=== PATIENT | male | born 1970 | race Caucasian/White ===

== ENCOUNTER 2019-12-08 05:08 | Inpatient (IN) ==
--- NOTE | 2019-11-28 14:19 | PAT Medication Instructions ---
Medication Instructions Date of Service November 28, 2019 Home Medications Medication Instructions Recorded meloxicam 15 mg tablet 15 mg PO DAILY #30 tab 11/04/19 ASK your surgeon for instructions meloxicam 15 mg tablet 15 mg PO DAILY Other Notes If you have any questions please call us at [phone] or [phone] or [phone] or [phone]
--- NOTE | 2019-11-29 10:46 | Anesthesiology Consultation ---
Date of Service November 29, 2019 Assessment & Plan (1) Encounter for pre-operative examination: Chart Review Chart Review: Acceptable Risk for Surgery (pending pre op labs) and Patient seen in Pre Admission Testing Teaching & Discussion Instructed NPO after midnight before surgery, except medications with 15 cc of water. Medication instructions provided according to the PAT guidelines. History Surgery Operation Date: 12/08/19 07:30 Proposed Procedures p C5-C6 Cervical Disc Arthroplasty - Sid Rush, Height/Weight Height: 5 ft 11 in Weight: 104.326 kg Allergies Allergy/AdvReac Type Severity Reaction Status Date / Time Penicillins Allergy Unknown REACTION Verified 11/29/19 08:40 , PT NOT SURE REACTION Medications Home Medications Medication Instructions Recorded Confirmed Last Taken meloxicam 15 mg tablet 15 mg PO DAILY #30 tab 11/04/19 11/29/19 Unknown Past Medical History Medical History (Updated 11/29/19 @ 10:50 by Navneet Lopez) Bulging disc NECK Obesity Pinched nerve in neck AFFECTS RIGHT ARM, NUMBNESS AND TINGLING Snores SLEEP STUDY TO BE SCHEDULED Exercise / Class Metabolic Activity II 4-5 Yardwork/Stairs/Walk up hill Past Surgical History Surgical History History of arthroscopy of left knee MENISCAL TEAR History of arthroscopy of right knee ACL REPLACED History of colonoscopy Hx of appendectomy Hx of cholecystectomy Hx of hernia repair Past Anesthesia History No Hx of Anesthesia Complications and No Family Hx of Anesthesia Complications History of PONV No Hx of PONV and No Hx of Motion Sickness STOP BANG Total 4 Social History Smoking Status: Current every day smoker tobacco type: cigarettes Smoking cigarettes per day: 1 PPD/ ADVISED NPO Do You Dip or Chew Tobacco: No Hx Alcohol Use: Yes alcohol intake frequency: holidays/special occasions only (very rare) Hx Substance Use: No substance use type: does not use Review of Systems Pt denies any recent chest pain, shortness of breath, palpitations, cough, fever or URI. Physical Exam Vital Signs BP: 119/86 P: 59bpm SPO2: 97% RA T: 97.9 F R: 16 ENMT Mouth: + macroglossia; no chipped teeth and no loose teeth Thyromental Distance: > or= 3.5 Finger Breadths (3.5) Mallampati Class: II Neck normal visual inspection, + limited neck extension and + facial hair (medium length goatee, trimmed away from mouth) Respiratory normal respiratory effort Auscultation: lungs clear to auscultation bilaterally Cardiovascular Rate/Rhythm: regular rate and regular rhythm Heart Sounds: no murmur Vessels: no carotid bruit
[2019-11-29 11:28] LABS: Basophils # (auto) 0.03 K/uL (0-0.2); Basophils % (auto) 0.2 %; Eosinophils # (auto) 0.28 K/uL (0-0.5); Eosinophils % (auto) 1.8 %; Hematocrit (blood only) 44.5 % (42-52); Hemoglobin 15.1 g/dL (14.0-18.0); Immature Granulocytes # (auto) 0.05 K/uL (0.00-0.02); Immature Granulocytes % (auto) 0.3 %; Lymphocytes % (auto) 16.9 %; Mean Corpuscular Hemoglobin 31.7 pg (25-34); Mean Corpuscular Hgb Conc 33.9 g/dL (32-36); Mean Corpuscular Volume 93.3 fL (80-100); Mean Platelet Volume 10.2 fL (7.4-10.4); Monocytes # (auto) 1.33 K/uL (0.11-0.59); Monocytes % (auto) 8.3 %; Neutrophils # (auto) 11.58 K/uL (1.4-6.5); Neutrophils % (auto) 72.5 %; Platelet Count 275 K/uL (130-400); RDW Coefficient of Variation 13.8 % (11.5-14.5); RDW Standard Deviation 47.5 fL (36.4-46.3); Red Blood Count 4.77 M/uL (4.7-6.1); White Blood Count 15.97 K/uL (4.8-10.8)
--- NOTE | 2019-12-07 10:01 | History and Physical Report ---
DATE OF ADMISSION: 12/07/2019 CHIEF COMPLAINT: Neck pain, arm pain, trapezius pain, signs and symptoms of cervical radiculopathy. A 6-7 month duration. No previous surgery. Failure therapy, failure medications. SURGICAL HISTORY: Arthroscopic knee surgery, appendectomy, cholecystectomy. FAMILY HISTORY: Diabetes and father with prostate CA. SOCIAL HISTORY: He is employed. Current everyday smoker. Alcohol rarely. ALLERGIES: PENICILLIN. REVIEW OF SYSTEMS: He denies any blurred vision, double vision, tinnitus or vertigo. Denies any chest pain, palpitations. No nausea, vomiting, no bowel and bladder discomfort. OBJECTIVE: GENERAL: He is alert, oriented. He is 5 feet 11 inches. He is 230 pounds. He is alert, oriented. VITAL SIGNS: Stable, blood pressure 130/80, pulse 80. HEENT: Pupils react to light and accommodation. Ear, nose and throat clear. CARDIAC: Normal S1, S2, no S3. LUNGS: Clear to auscultation. No rales, rhonchi or wheezing. ABDOMEN: Soft, nontender. He has a positive Spurling maneuver. He has a Lhermitte sign. He has pain with flexion, extension of cervical spine. He has some numbness and tingling as well. IMAGES: An MRI scan and plain films demonstrate spinal cord compression, osteophyte disc complex at C5-C6 cervical spine. PLAN: Cervical disc arthroplasty, C5-C6 cervical spine.
[2019-12-08] MEDS ORDERED: LR 15ML/HR IV SCH (06:00)
[2019-12-08] MEDS ORDERED: SODIUM CHLORIDE 0.9% 1000ML IV SCH (06:00)
[2019-12-08] MEDS ORDERED: CLINDAMYCIN 600 MG/54 ML BAG IV SCH (06:00)
[2019-12-08] MEDS ORDERED: PROMETHAZINE HCL 12.5 MG in SODIUM CHLORIDE 0.9% 50 ML IV PRN ×3 (06:53→11:42)
[2019-12-08] MEDS ORDERED: ONDANSETRON INJ 2 MG/ML 2 ML VIAL IV PRN ×3 (06:53→11:42)
[2019-12-08] MEDS ORDERED: ATROPINE SULFATE 0.1 MG/ML 10ML SYR IV PRN (06:53)
[2019-12-08] MEDS ORDERED: LABETALOL HCL IV 5 MG/ML 20ML IV PRN (06:53)
[2019-12-08] MEDS ORDERED: ePHEDrine sulfate 50 MG/ML AMP ONE (06:54)
[2019-12-08] MEDS ORDERED: SUCCINYLCHOLINE CHLORIDE 20 MG/ML 10 ML VIAL ONE (06:54)
[2019-12-08] MEDS ORDERED: PROPOFOL IV EMULSION 10 MG/ML 20 ML VIAL IV ONE (06:54)
[2019-12-08] MEDS ORDERED: PHENYLEPHRINE HCL 10 MG/ML VIAL ONE (06:54)
[2019-12-08] MEDS ORDERED: NEOSTIGMINE METHYLSULFATE 5 MG/5 ML SYR ONE (06:54)
[2019-12-08] MEDS ORDERED: DEXAMETHASONE SOD INJ 4 MG/ML VIAL ONE ×2 (06:54→08:02)
[2019-12-08] MEDS ORDERED: LIDOCAINE HCL 2% 2 ML VIAL/AMP(20MG/ML) INFIL ONE (06:54)
[2019-12-08] MEDS ORDERED: GLYCOPYRROLATE 0.2 MG/ML VIAL ONE (06:54)
[2019-12-08] MEDS ORDERED: ONDANSETRON INJ 2 MG/ML 2 ML VIAL ONE (06:54)
[2019-12-08] MEDS ORDERED: fentaNYL citrate 100 MCG/2 ML VIAL ONE ×2 (06:54)
[2019-12-08] MEDS ORDERED: MIDAZOLAM HCL 1 MG/ML 2ML VIAL ONE (06:54)
[2019-12-08] MEDS ORDERED: BACITRACIN INJ 50,000 UNIT VIAL ONE (07:07)
[2019-12-08] MEDS ORDERED: THROMBIN FOR SOLN 20000 UNIT KIT ONE (07:07)
[2019-12-08] MEDS ORDERED: GELATIN SPONGE SZ 100 ONE (07:07)
[2019-12-08] MEDS ORDERED: BUPIVACAINE 0.5 % 5 MG/1 ML MPF 30ML VIAL ONE (07:08)
[2019-12-08] MEDS ORDERED: EPINEPHrine INJ 1 MG/ML AMP ONE (07:08)
--- NOTE | 2019-12-08 07:12 | History & Physical Bridge Note ---
Date of Service December 08, 2019 History & Physical Bridge Note I have examined the patient, reviewed the History & Physical and in the interval since the performance of the History & Physical I have noted the following changes of clinical significance: no changes noted
[2019-12-08] MEDS ORDERED: HYDROmorphone INJ 2 MG/ML SYR/VIAL ONE (07:48)
[2019-12-08] MEDS ORDERED: SODIUM CHLORIDE 0.9% INJ 10 ML VIAL ONE (07:48)
[2019-12-08] MEDS ORDERED: ROCURONIUM BROMIDE 10 MG/ML 5 ML VIAL ONE (08:02)
[2019-12-08] MEDS ORDERED: LARYING-O-JET KIT (LTA) ONE (08:20)
[2019-12-08] MEDS ORDERED: LABETALOL HCL IV 5 MG/ML 20ML IV ONE (08:45)
[2019-12-08] MEDS ORDERED: ONDANSETRON 4 MG OD TAB PO PRN ×2 (09:26→11:42)
[2019-12-08] MEDS ORDERED: ALUMINUM/MAGNESIUM SUSP 30 ML UDC PO PRN ×2 (09:26→11:42)
[2019-12-08] MEDS ORDERED: MAGNESIUM HYDROXIDE SUSP 30 ML UDC PO PRN ×2 (09:26→11:42)
[2019-12-08] MEDS ORDERED: HYDROCODONE/ACETAMOPHEN 5/325MG TAB PO PRN (09:26)
[2019-12-08] MEDS ORDERED: DO NOT ADMINISTER PNEUMOCOCCAL VACCINE PRN ×2 (09:26→11:42)
[2019-12-08] MEDS ORDERED: DO NOT ADMINISTER FLU VACCINE PRN ×2 (09:26→11:42)
[2019-12-08] MEDS ORDERED: LORazepam 0.5 MG/1 ML VIAL IV PRN ×2 (09:26→11:42)
[2019-12-08] MEDS ORDERED: TRAMADOL HCL 50 MG TABLET PO PRN (09:26)
[2019-12-08] MEDS ORDERED: DEXAMETHASONE SOD PHOSPHATE 8 MG in SYRINGE 0 ML IV PRN ×2 (09:26→11:42)
[2019-12-08] MEDS ORDERED: SOD PHOSPHATE/SOD BIPHOSPHATE ENEMA 132 ML BTL PR PRN ×2 (09:26→11:42)
[2019-12-08] MEDS ORDERED: OXYCODONE HCL IR 5 MG TAB (IMMEDIATE RELEASE) PO PRN (09:26)
[2019-12-08] MEDS ORDERED: NALOXONE HCL 0.4 MG/1 ML VIAL/CARP IV PRN ×2 (09:26→11:42)
[2019-12-08] MEDS ORDERED: LORazepam 0.5 MG TAB PO PRN ×2 (09:26→11:42)
[2019-12-08] MEDS ORDERED: HYDROmorphone INJ 0.5 MG/0.5 ML SYR IV PRN ×2 (09:26→11:42)
[2019-12-08] MEDS ORDERED: FAMOTIDINE 20 MG TAB PO PRN ×2 (09:26→11:42)
--- NOTE | 2019-12-08 09:28 | Post Operative Brief Note ---
PG Immediate Post Op with CF Date of Surgery December 08, 2019 Pre & Post Diagnosis Operation Date: 12/08/19 07:30 Pre-Op Diagnosis: Degenerative Disc Cervical Spine Post-Op Diagnosis: Degenerative Disc Cervical Spine I identified the patient and participated in the time-out.: Yes Procedure Operation Date: 12/08/19 07:30 Actual Procedures p C5-C6 Cervical Disc Arthroplasty(Not Applicable) - Sid Rush DO Surgeon Sid Rush DO Industry Segment Specialist Yang Estimated Blood Loss 5 Findings Consistent with Post-Op Diagnosis Specimens Specimen Description: none per surgeon Drains Antonio Drain (1/4 inch - placed and positioned by surgeon) Anesthesia Type General Disposition Accompanied Patient To Recovery: Yes Overlapping Procedure I was immediately available: during the entire case.
[2019-12-08] MEDS ORDERED: SODIUM CHLORIDE 0.9% 1000ML 1,000 ML IV SCH (09:30)
--- NOTE | 2019-12-08 09:31 | Operative Report ---
PG Post Operative Report Pre & Post Diagnosis Operation Date: 12/08/19 07:30 Pre-Op Diagnosis: Degenerative Disc Cervical Spine Post-Op Diagnosis: Degenerative Disc Cervical Spine I identified the patient and participated in the time-out.: Yes Procedure Operation Date: 12/08/19 07:30 Actual Procedures p C5-C6 Cervical Disc Arthroplasty(Not Applicable) - Sid Rush DO Surgeon Sid Rush, Oil Heater Operator Yang Estimated Blood Loss 5 Findings Consistent with Post-Op Diagnosis Specimens No specimens Drains Antonio drain Anesthesia Type General Complications 0 complications Disposition Accompanied Patient To Recovery: Yes Disposition: Recovery Room Indications Spinal cord compression and weakness Description of Procedure Patient was taken to the operating room a general intubated anesthetic provided to the patient. He was safely placed up on the Len flat table laced under 5 pounds of traction. Bolster placed between his scapula arms tucked to his side. Rubbed first with Betadine prep twice with ChloraPrep. Draped sterile Formal timeout taken Made a skin incision over the C5-6 interval the cervical spine. Carefully dissected soft tissue in the same plane we coagulated all bleeding surfaces. We took a crosstable lateral C-spine image we were at the C5-6 interspace. We did a formal discectomy back and through the posterior longitudinal ligament taking out osteophyte [place] we are laterally to the uncovertebral joint bilaterally. I had perfect visualization. I cleaned off the endplates of 5 and 6. Selected a trial fit perfectly 5 mm x 15 x 15 mm. I selected the actual implant. This was placed in discectomy site fit was anatomic on both AP and lateral images we irrigated was over a Antonio drain with Monocryl suture there will dressings applied collar applied patient was safely taken to recovery room in satisfactory and stable condition. There is no liz-intraoperative complications Implants used Moby C Sponge and needle count correct Estimated blood loss 5 cc I attest to the content of the Intraoperative Record and any orders documented therein. Any exceptions are noted below.
[2019-12-08] MEDS ORDERED: ACETAMINOPHEN 1,000 MG/100 ML VIAL IV PRN ×2 (09:32→11:42)
[2019-12-08] MEDS ORDERED: CEFAZOLIN 2000MG 2,000 MG/15 ML SYR IV SCH (09:45)
[2019-12-08] MEDS ORDERED: KETOROLAC 30 MG/ML VIAL IV SCH (09:45)
[2019-12-08] MEDS: HYDROmorphone INJ 1 MG/ML SYRINGE IV PRN ×2 (10:14→10:19)
--- NOTE | 2019-12-08 10:21 | Fluoroscopy Report ---
FL cervical 2-3V CLINICAL HISTORY: C5-C6 CERVICAL DISC ARTHROPLASTY COMPARISON STUDY: None FLUOROSCOPY TIME: 20 seconds NUMBER OF FLUOROSCOPIC IMAGES: 3 FINDINGS: Findings consistent with image intensifier support for a C5-C6 cervical disc arthroplasty IMPRESSION: Findings consistent with image intensifier support for C5-C6 cervical disc arthroplasty. ACT 112: Negative or not required by law. The above report was generated using voice recognition software. It may contain grammatical, syntax or spelling errors. Electronically signed by: Hi Auguste M.D. 12/08/2019 10:20 AM
--- NOTE | 2019-12-08 10:26 | Anesthesiology Progress Note ---
Date of Service December 08, 2019 Anesthesia Post Procedure Vital Signs Vital Signs: Temp Pulse Pulse Resp BP Pulse Ox 12/08/19 10:25 71 15 144/90 H 94 12/08/19 10:15 71 16 137/89 94 12/08/19 10:05 78 19 139/89 95 12/08/19 09:55 78 18 155/95 H 95 12/08/19 09:45 65 18 163/102 H 98 12/08/19 09:35 80 14 160/90 H 100 12/08/19 09:25 67 16 137/89 97 12/08/19 09:18 36.3 C L 72 20 145/87 H 97 12/08/19 05:57 36.9 C 75 16 134/82 96 Pain Intensity Neck: Pain Intensity: 4 Transfer of Care Handoff Completed per policy Notes Mental Status: alert / awake / arousable Patient Amnestic to Procedure: Yes Nausea / Vomiting: adequately controlled Pain: adequately controlled Airway Patency, RR, SpO2: stable & adequate BP & HR: stable & adequate Hydration State: stable & adequate Anesthetic Complications: no major complications apparent
[2019-12-08] MEDS: SODIUM CHLORIDE 0.9% 1000ML 1,000 ML IV SCH (13:14)
[2019-12-08] MEDS: KETOROLAC 30 MG/ML VIAL IV SCH ×2 (13:17→18:13)
[2019-12-08] MEDS: POLYETHYLENE (MIRALAX) 17 GM PACK PO SCH ×2 (13:28→17:25)
[2019-12-08] MEDS: OXYCODONE HCL IR 5 MG TAB (IMMEDIATE RELEASE) PO PRN (17:28)
[2019-12-08] MEDS: CEFAZOLIN 2000MG 2,000 MG/15 ML SYR IV SCH (18:13)
[2019-12-08] MEDS ORDERED: DOCUSATE SODIUM/SENNA 50/8.6MG TAB PO SCH ×2 (21:00)
[2019-12-09] MEDS: KETOROLAC 30 MG/ML VIAL IV SCH ×2 (00:10→06:14)
[2019-12-09] MEDS: POLYETHYLENE (MIRALAX) 17 GM PACK PO SCH ×2 (00:10→06:14)
[2019-12-09] MEDS: CEFAZOLIN 2000MG 2,000 MG/15 ML SYR IV SCH (04:11)
[2019-12-09] MEDS: SODIUM CHLORIDE 0.9% 1000ML 1,000 ML IV SCH (04:33)
--- NOTE | 2019-12-09 08:44 | Discharge Summary ---
SUBJECTIVE: Edmundo is delightful. He is alert and oriented. He is now out about 20 hours from his surgery. He has done well uneventful. No neurological deficits. No chest pain, shortness of breath. Alert and oriented. OBJECTIVE: VITAL SIGNS: Stable. ASSESSMENT: Status post arthroplasty, cervical spine. PLAN: Dressing changed today. Discharge home today. Followup examination done in the office in approximately 2 weeks.
[2019-12-09] MEDS: OXYCODONE HCL IR 5 MG TAB (IMMEDIATE RELEASE) PO PRN (09:03)
[2019-12-09] MEDS ORDERED: POLYETHYLENE (MIRALAX) 17 GM PACK PO SCH (09:27)
[2019-12-10] MEDS ORDERED: bisacodyL 10 MG SUPP PR PRN ×2 (09:27→11:42)
== END 2019-12-09 09:39 | disposition home or self-care (01) | DRG 518 ==
LOC: ASU 05:08 → 3E 09:27